=== PATIENT | male | born 1990 | race Caucasian/White ===

== ENCOUNTER 2018-08-13 09:56 | Emergency (ER) | payer MEDICAID ==
[~2018-08-13] VITALS: Ht 165.1 cm; Wt 56.7 kg
[~2018-08-13 09:56] MED LIST: HC1C30 TOP
[2018-08-13 10:00] VITALS: BP 119/56; PULSE 76; RESP 18; Ht 165.1 cm; Wt 56.7 kg
[2018-08-13] MEDS ORDERED: ERYT1OIN6 RIGHT EYE (10:28)
--- NOTE | 2018-08-13 10:30 | ERD ---
ER Documentation Chief Complaint Chief Complaint R.eye redness/swelling/pain x 2 days HPI 28-year-old male presents with sudden onset of right upper eyelid swelling x 2 days. States that it is not painful. He denies any lesion on the left eye. He denies any vision changes. Denies a past history of similar incidents. He has tried [id number]-aoa-[id number] eyes clear eyedrop with no relief of his symptoms. He denies any pain with eye movement. ROS All systems reviewed and are negative except as per history of present illness. Medications Home Meds Active Scripts Erythromycin Base (Erythromycin) 1 Gm Oint...g., 1 APPLIC RIGHT EYE QID for 7 Days Prov:JENNIFER SEGOVIA PA-C 08/13/18 Hydrocortisone* Topical (Hydrocortisone* Topical) 1%-28.35 Gm Cream..g., 1 APPLIC TOP Q6 PRN for ITCHING, #1 TUB Prov:GARRY MAHAN PA-C 02/04/15 Allergies Allergies: Coded Allergies: No Known Allergy (Unverified , 02/04/15) PMhx/Soc Medical and Surgical Hx: pt denies Medical Hx, pt denies Surgical Hx Hx Alcohol Use: No Hx Substance Use: No Hx Tobacco Use: No Smoking Status: Never smoker FmHx Family History: No diabetes Physical Exam Vitals Vital Signs Date Temp Pulse Resp B/P (MAP) Pulse Ox O2 O2 Flow FiO2 Time Delivery Rate 08/13/18 97.9 76 18 119/56 99 10:00 (77) Physical Exam Const: No acute distress, wearing sunglasses Head: Atraumatic Eyes: Right eye: 5 mm red nonpainful swollen upper eye lid. No vision changes or difficulties. No pain with extraocular movement. PERRLA. Left eye: normal ENT: Normal External Ears, Nose and Mouth. Resp: Clear to auscultation bilaterally Cardio: Regular rate and rhythm, no murmurs Abd: Soft, non tender, non distended. Normal bowel sounds Skin: no other rashes Back: No midline or flank tenderness Ext: No cyanosis, or edema Neur: Awake and alert Psych: Normal Mood and Affect Procedures/MDM ED COURSE: The patient was stable throughout ED course. I kept the patient informed of laboratory and diagnostic imaging results throughout the ED course. MEDICATIONS GIVEN: [None.] MEDICAL DECISION MAKING: Patient is a 28-year-old male with history of sudden onset of right upper eyelid swelling. He denies any vision changes or pain with extraocular movements. He denies a past history of this. States the left eye is fine. He denies any possibility of foreign objects inside his eye. H&P and other data not c/w emergent process (eg. glaucoma, keratitis, globe perf, corneal ulcer, orbital cellulitis). She was advised to apply warm compresses for 15 minutes up to 4 times a day. His vital signs were reviewed. Patient is afebrile. Patient was not hypoxic. Patient was hemodynamically stable. PRESCRIPTION: Erythromycin ointment DISCHARGE: At this time, patient is stable for discharge and outpatient management. I have instructed the patient to follow-up with his/her primary care physician in 1-2 days. I have discussed with the patient the possibility of needing to see a specialist for further workup and imaging studies if symptoms persist. I have instructed the patient to promptly return to the ER for any new or worsening symptoms including increased pain, fever, nausea, vomiting, weakness or LOC. The patient and/or family expressed understanding of and agreement with this plan. All questions were answered. Home care instructions were provided. Disclaimer: Inadvertent spelling and grammatical errors are likely due to EHR/dictation software use and do not reflect on the overall quality of patient care. Also, please note that the electronic time recorded on this note does not necessarily reflect the actual time of the patient encounter. Departure Diagnosis: Primary Impression: Stye Laterality: right Eyelid: upper Qualified Codes: H00.011 - Hordeolum externum right upper eyelid Condition: Fair Patient Instructions: [facility] Referrals: [facility] YOU HAVE RECEIVED A MEDICAL SCREENING EXAM AND THE RESULTS INDICATE THAT YOU DO NOT HAVE A CONDITION THAT REQUIRES URGENT TREATMENT IN THE EMERGENCY DEPARTMENT. FURTHER EVALUATION AND TREATMENT OF YOUR CONDITION CAN WAIT UNTIL YOU ARE SEEN IN YOUR DOCTORS OFFICE WITHIN THE NEXT 1-2 DAYS. IT IS YOUR RESPONSIBILITY TO MAKE AN APPOINTMENT FOR FOLOW-UP CARE. IF YOU HAVE A PRIMARY DOCTOR --you should call your primary doctor and schedule an appointment IF YOU DO NOT HAVE A PRIMARY DOCTOR YOU CAN CALL OUR PHYSICIAN REFERRAL HOTLINE AT IF YOU CAN NOT AFFORD TO SEE A PHYSICIAN YOU CAN CHOSE FROM THE FOLLOWING [facility] [address] [facility]. [facility] [address] [facility]. [facility] [address] [facility] [address] [facility] [address] [facility]. [facility] [address] [facility]. [facility] YOU HAVE RECEIVED A MEDICAL SCREENING EXAM AND THE RESULTS INDICATE THAT YOU DO NOT HAVE A CONDITION THAT REQUIRES URGENT TREATMENT IN THE EMERGENCY DEPARTMENT. FURTHER EVALUATION AND TREATMENT OF YOUR CONDITION CAN WAIT UNTIL YOU ARE SEEN IN YOUR DOCTORS OFFICE WITHIN THE NEXT 1-2 DAYS. IT IS YOUR RESPONSIBILITY TO MAKE AN APPOINTMENT FOR FOLOW-UP CARE. IF YOU HAVE A PRIMARY DOCTOR --you should call your primary doctor and schedule and appointment IF YOU DO NOT HAVE A PRIMARY DOCTOR YOU CAN CALL OUR PHYSICIAN REFERRAL HOTLINE AT . IF YOU CAN NOT AFFORD TO SEE A PHYSICIAN YOU CAN CHOSE FROM THE FOLLOWING [facility] INSTITUTIONS: [facility] [address] [place] [address] [facility] [address] [place] [address] [facility] [address] [place] [address] Additional Instructions: Warm compresses 4 times a day for 15 min each Llame al doctor MAANA y kylie luciano CIPRIANO PARA DENTRO DE 1-2 BOSS.Dgale a la secretaria que nosotros le instruimos hacer esta cipriano.Avise o llame si reyez condicin se empeora antes de la cipriano. Regresa aqui si peor o no mejor. JENNIFER SEGOVIA PA-C Aug 13, 2018 10:30
== END 2018-08-13 11:10 | disposition home or self-care (01) ==
LOC: FTE 09:56
DX: H00.011 Hordeolum externum right upper eyelid (principal)
CPT/HCPCS: 99283